=== PATIENT | male | born 1995 | race Caucasian/White ===

== ENCOUNTER 2020-03-05 10:40 | Outpatient (CLI) | payer OTHER, SELFPAY ==
--- NOTE | ~2020-03-05 | US_ITS ---
EXAMINATION: US venous doppler LE RT DATE: 03/05/2020 11:36 INDICATION: Right lower limb pain, swelling and erythema. TECHNIQUE: Grayscale ultrasound images without and with compression and Doppler ultrasound images of the right lower extremity veins were obtained. COMPARISON: None. FINDINGS: The visualized portions of right common femoral vein, profunda (deep) femoral vein, femoral vein, pop liteal vein, peroneal trunk, posterior tibial veins, peroneal veins, gastrocnemius vein and greater s aphenous vein outflow are patent. IMPRESSION: 1. No deep venous thrombosis in the right lower limb. Reviewed, dictated and finalized at location A.
== END 2020-03-05 10:41 | disposition home or self-care (01) ==
PROVIDERS: PCP Family Medicine Sports Medicine; Visit Provider Family Medicine Sports Medicine
DX: M79.661 Pain in right lower leg (principal); M79.89 Other specified soft tissue disorders
CPT/HCPCS: 93971

== ENCOUNTER 2020-06-03 14:26 | Emergency (ER) | payer OTHER, SELFPAY ==
[2020-06-03 14:34] VITALS: BP 181/91; PULSE 103; RESP 16; TEMP 36.6; O2SAT 99
--- NOTE | 2020-06-03 14:40 | ED.GENADULT ---
HPI - General Adult General Chief complaint: Skin/Abscess/Foreign Body Stated complaint: POS skin abcess Time Seen by Provider: 06/03/20 14:40 Source: patient and RN notes reviewed Mode of arrival: ambulatory Limitations: no limitations History of Present Illness HPI narrative: 25-year-old male presents with complaints of RT anterior upper thigh with redness, tenderness, and swelling for the past 4-5 days. Tender to touch. No drainage. No history of skin abscess. No fever or chills. Remains active. The patient reports he have not been diagnosed with COVID-19. The patient reports he is not waiting for the results of a COVID-19 lab test. The patient reports he do not have fever, chills, weakness, or fatigue. The patient reports he do not have a new or worsening cough or shortness of breath. Denies chest pain. The patient reports he do not have any rhinorrhea, congestion, sore throat, loss of taste, nausea, vomiting, abdominal pain, and diarrhea. Tolerating po intake well. Denies recent traveling. Denies concerns for COVID-19 or exposures been home with limited outdoor exposure except for essential household needs, work, and return home. At this time, patient is not suspected of having COVID-19. Some parts of this dictation were generated by voice recognition software and may contain typographical and/or grammatical inaccuracies. Related Data Home Medications Medication Instructions Recorded Confirmed lisinopril-hydrochlorothiazide tablet 06/03/20 Allergies Allergy/AdvReac Type Severity Reaction Status Date / Time No Known Allergies Allergy Unverified 06/11/19 19:55 Review of Systems Review of Systems: Narrative: CONSTITUTIONAL: Denies fever, chills, sweats. EYES: Denies visual changes, redness, discharge. ENT: Denies rhinorrhea, congestion, sore throat, otalgia. CARDIOVASCULAR: Denies chest pain, palpitations, edema. RESPIRATORY: Denies dyspnea, wheezing, cough. GASTROINTESTINAL: Denies abdominal pain, nausea, vomiting, diarrhea. GENITOURINARY: Denies dysuria, hematuria, abnormal discharge. SKIN: Denies rash or itching. Complains of RT anterior upper thigh with redness, tenderness, and swelling. Denies drainage. MUSCULOSKELETAL: Denies acute back pain, joint pain, or myalgia. NEUROLOGIC: Denies numbness or focal weakness. PSYCHIATRIC: Denies anxiety or depression. All systems reviewed & are unremarkable except as noted in HPI and below. [facility] Past Medical History Medical History (Updated 06/03/20 @ 14:52 by TIM Hendrix) Hypertension Surgical History Surgical History (Updated 06/03/20 @ 14:48 by TIM Hendrix) History of removal of cyst Removed from RT side of neck Family History Family History (Updated 06/03/20 @ 14:51 by TIM Hendrix) Father Diabetes mellitus Family history of stroke Family history of hypertension Mother Asthma Social History Social History (Updated 06/03/20 @ 15:40 by TIM Hendrix) Smoking status: Never smoker Tobacco type: cigarettes Second hand tobacco smoke exposure: No Alcohol intake: never Substance use: never Living arrangements: with family Occupation/Education: occupation Gender identity (if verbalized by the patient): Male Comments At time of signature, I have reviewed and agree with nursing past medical, surgical, social, and family history. Please see nursing chart for further information. There is no relevant family history pertinent to the presenting complaint. Exam Narrative: Exam Narrative: GENERAL: This is a well-nourished, well-developed patient, in no apparent distress. Talking in full sentences without deficit and ambulate with steady gait without dyspnea. HEAD: normocephalic, atraumatic. EYES: PERRL. Sclera clear/white. Vision is grossly intact. NECK: Neck supple, non-tender without lymphadenopathy, masses or thyromegaly. CARDIOVASCULAR: Regular rate and rhythm without murmurs, ga
== END 2020-06-03 14:59 | disposition home or self-care (01) ==
PROVIDERS: Emergency Provider Nurse Practitioner Family; PCP Family Medicine
DX: L02.415 Cutaneous abscess of right lower limb (principal); I10 Essential (primary) hypertension
CPT/HCPCS: 99213; G0463

== ENCOUNTER 2024-07-06 13:51 | Emergency (ER) | payer OTHER, SELFPAY ==
--- NOTE | ~2024-07-06 | XR_ITS ---
EXAMINATION: XR chest 2V 07/06/2024 14:34 INDICATION: Chest pain PROCEDURE: 2 view chest COMPARISON: 06/28/2017 FINDINGS: The lungs are clear. The cardiomediastinal silhouette is within normal limits. There are no pleural effusions. There is no pneumothorax suspected. IMPRESSION: 1: NO ACUTE CARDIOPULMONARY DISEASE. Reviewed, dictated and finalized at location B.
[2024-07-06 13:52] VITALS: BP 184/105; PULSE 81; RESP 16; TEMP 36.8; O2SAT 100
--- NOTE | 2024-07-06 13:57 | ECG_ITS ---
Test Date: 2024-07-06 13:58:43 Measurements Intervals [place] Rate: 82 P: 24 MA: 179 QRS: -4 QRSD: 90 T: 34 QT: 379 QTc: 445 Interpretive Statements SINUS RHYTHM NORMAL ELECTROCARDIOGRAM No previous ECG available for comparison Electronically Signed On 07-07-2024 07:48:20 CDT by Philippe Acevedo M.D.
--- NOTE | 2024-07-06 14:01 | ED.CHESTPAIN ---
HPI - Chest Pain General Chief Complaint: Chest Pain <Shanel Colon PA-C - Last Filed: 07/06/24 14:07> Stated Complaint: chest pain <Shanel Colon PA-C - Last Filed: 07/06/24 14:07> Time Seen by Provider: 07/06/24 14:01 <Shanel Colon PA-C - Last Filed: 07/06/24 14:07> Focused HPI: Patient is a 29 y/o male, with PMH of HTN, who presents to the ED with c/o CP. Patient reports chest pain started last night. He ate dinner and reports approx 30 minutes after eating, he began having pain in his midsternal chest. States pain was persistent throughout the night, though was somewhat mild. Denies any aggravation with exertion, seems to occur more when sitting down. Denies radiation of pain. Denies N/V. Denies SOB. Denies known hx of GERD. Does have FHx of heart disease. GENERAL: Well-appearing, morbidly obese with BMI of 48.0, and in no acute distress. HEAD: Normocephalic, atraumatic. CHEST: Clear to auscultation. ?No respiratory distress. HEART: Regular rate and rhythm.? MSK: Minimal tenderness in midsternal region. NEURO: ?Alert and oriented x3. Patient screened in triage and initial orders placed.? ?Additional care and disposition to be based upon?diagnostic testing and treatment. <Shanel Colon PA-C - Last Filed: 07/06/24 14:07> Source: patient <Shanel Colon PA-C - Last Filed: 07/06/24 14:07> Mode of arrival: ambulatory <Shanel Colon PA-C - Last Filed: 07/06/24 14:07> Limitations: no limitations <ANA MARÍA Gil Last Filed: 07/06/24 14:07> History of Present Illness HPI narrative: I agree with the HPI as documented in the medical screening exam <Robbie Noel MD - Last Filed: 07/06/24 22:22> Related Data Home Medications: Home Medications Medication Instructions Recorded Confirmed lisinopril 20 tablet 06/03/20 mg-hydrochlorothiazide 25 mg tablet <ANA MARÍA Gil Last Filed: 07/06/24 14:07> Allergies/Adverse Reactions: Allergies Allergy/AdvReac Type Severity Reaction Status Date / Time No Known Allergies Allergy Unverified 06/11/19 19:55 <Shanel Colon PA-C - Last Filed: 07/06/24 14:07> PMFSH Past Medical History Medical History: Medical History Hypertension <ANA MARÍA Gil Last Filed: 07/06/24 14:07> Surgical History Surgical History: Surgical History History of removal of cyst Removed from RT side of neck <Shanel Colon PA-C - Last Filed: 07/06/24 14:07> Family History Family History: Family History Father Diabetes mellitus Family history of stroke Family history of hypertension Mother Asthma <Shanel Colon PA-C - Last Filed: 07/06/24 14:07> Social History Social History: Social History Smoking status: Never smoker Tobacco type: cigarettes Second hand tobacco smoke exposure: No Alcohol intake: never Substance use: never Living arrangements: with family Occupation/Education: occupation Gender identity (if verbalized by the patient): Male <ANA MARÍA Gil Last Filed: 07/06/24 14:07> Exam Narrative: GENERAL: Well-developed, well-nourished, and in no acute distress. HEAD: Normocephalic, atraumatic. EYES: PERRLA and EOMI. NECK: Supple. No JVD CHEST: Clear to auscultation. No respiratory distress. No wheezes rales or rhonchi HEART: Regular rate and rhythm. No murmur heard. Normal peripheral pulses. ABDOMEN: Soft, nontender, nondistended, normal active bowel sounds. EXTREMITIES: Normal range of motion. No edema. SKIN: Warm, dry, no rash. NEURO: Alert and oriented x3. No focal deficit. Moving all 4 limbs spontaneously PSYCH: Normal mood
[2024-07-06 14:08] LABS: Basophils Absolute Auto 0.1 K/mm3 (0.0-0.1); Basophils Percent Auto 0.9 % (0.2-1.2); Eosinophils Absolute Auto 0.1 K/mm3 (0-0.3); Eosinophils Percent Auto 1.9 % (0-4.4); Hematocrit 47.7 % (42.0-52.0); Hemoglobin 16.2 g/dL (14.0-18.0); Immature Granulocyte Absolute 0.02 K/mm3 (0.00-0.031); Immature Granulocyte Percent A 0.3 % (0-0.5); Lymphocytes Percent Auto 25.7 % (18.3-44.2); Mean Corpuscular Hemoglobin 29.3 pg (26-34); Mean Corpuscular Volume 86.3 fl (80-100); Mean Platelet Volume 11.8 fl (7.4-10.4); Monocytes Absolute Auto 0.4 K/mm3 (0.1-0.6); Neutrophils Absolute Auto 3.7 K/mm3 (1.3-6.7); Neutrophils Percent Auto 64.2 % (45.5-73.1); Platelet Count Result 160 k/mm3 (150-375); Red Blood Count 5.53 M/mm3 (4.6-6.20); Red Cell Distribution Width 13.2 % (11.5-14.5); White Blood Count 5.8 K/mm3 (4.5-10.0)
[2024-07-06 14:18] LABS: Alanine Aminotransferase 55 U/L (6-50); Albumin Level 4.4 g/dL (3.5-5.1); Alkaline Phosphatase 81 U/L (38-126); Anion Gap 5 mmol/L (4-12); Aspartate Amino Transferase 36 U/L (17-59); Bilirubin,Total 0.8 mg/dL (0.2-1.3); Blood Urea Nitrogen 14 mg/dL (9-20); Carbon Dioxide 29 mmol/L (22-30); Chloride 106 mmol/L (98-107); Estimated CRCL calculation 154 ml/min; Estimated Glomerular Filt Rate > 60; Glucose 91 mg/dL (65-110); Lipase 32 U/L (23-300); Potassium 3.5 mmol/L (3.4-5.0); Sodium 140 mmol/L (137-145)
[2024-07-06 14:19] LABS: INR 0.9
[2024-07-06 14:20] LABS: Partial Thromboplastin Time 24.6 Seconds (22.3-36.8)
[2024-07-06 14:30] LABS: Troponin I < 0.012 ng/mL (0.000-0.034)
[2024-07-06 16:31] VITALS: BP 145/131; PULSE 90; RESP 18; TEMP 36.6; O2SAT 97
[2024-07-06 16:36] VITALS: BP 151/106; PULSE 85; RESP 19; TEMP 37.2; O2SAT 95; O2SAT 96
[2024-07-06] MEDS: ASPIRIN 81 MG CHEWABLE TABLET 324 MG PO (16:42)
[2024-07-06] MEDS: BELLADONNA ALK/PHENOB ELIX 10 ML, MAG HYDROX/ALUMINUM HYD/SIMETH 30 ML, LIDOCAINE HCL 2... PO (16:52)
--- NOTE | 2024-07-06 17:00 | ECG_ITS ---
Test Date: 2024-07-06 17:10:15 Measurements Intervals [place] Rate: 79 P: 28 [place]: 190 QRS: 13 QRSD: 87 T: 32 QT: 370 QTc: 426 Interpretive Statements SINUS RHYTHM NORMAL ELECTROCARDIOGRAM Compared to ECG 07/06/2024 13:58:43 No significant changes Electronically Signed On 07-07-2024 07:53:10 CDT by Philippe Acevedo M.D.
[2024-07-06 17:33] LABS: Troponin I < 0.012 ng/mL (0.000-0.034)
[2024-07-06 18:11] VITALS: BP 122/97; PULSE 92; RESP 22; O2SAT 97
== END 2024-07-06 18:13 | disposition home or self-care (01) ==
LOC: ANHED 17:22
PROVIDERS: Emergency Medicine; Emergency Provider Preventive Medicine Aerospace Medicine
DX: R07.89 Other chest pain (principal); I10 Essential (primary) hypertension
CPT/HCPCS: 36415; 71046; 80053; 83690; 84484; 85025; 85610; 85730; 93005; 99284; A9270